=== PATIENT | female | born 1965 | race Caucasian/White ===

== ENCOUNTER 2017-06-23 07:52 | Emergency (ER) | payer SELFPAY ==
[2017-06-23 08:04] VITALS: BP 133/85
[2017-06-23] MEDS ORDERED: Tetracaine 0.5% OPTH.SOL 4 ML* 1 DROP BTL LEFT EYE ONE (08:11)
[2017-06-23] MEDS ORDERED: NS 0.9% 1000 ML* 1,000 ML IV ONE (08:12)
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
== END 2017-06-23 09:02 | disposition home or self-care (01) ==
LOC: UCEAST 07:52
DX: Z77.098 Contact with and (suspected) exposure to other hazardous, chiefly nonmedicinal, chemicals (principal); G43.909 Migraine, unspecified, not intractable, without status migrainosus; Z88.3 Allergy status to other anti-infective agents; Z87.442 Personal history of urinary calculi
CPT/HCPCS: 83986; 99212; A9270-GY; G0463

== ENCOUNTER 2017-11-13 05:52 | Emergency (ER) | payer BC ==
--- NOTE | 2017-11-13 08:18 | RAD ---
HISTORY: Cough COMPARISONS: December 12, 2006 VIEWS: 4: Frontal dual-energy and lateral views of the chest. FINDINGS: CARDIOMEDIASTINAL SILHOUETTE: The cardiomediastinal silhouette is normal. ERASMO: The erasmo are normal. PLEURA: The costophrenic angles are sharp. No pleural abnormalities are noted. LUNG PARENCHYMA: The lungs are clear. ABDOMEN: The upper abdomen is clear. There is no subphrenic gas. 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 IMPRESSION: NO ACTIVE CARDIOPULMONARY DISEASE.
[2017-11-13 08:37] VITALS: BP 115/72
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
== END 2017-11-13 08:43 | disposition home or self-care (01) ==
LOC: ED 05:52
DX: J11.1 Influenza due to unidentified influenza virus with other respiratory manifestations (principal); Z88.1 Allergy status to other antibiotic agents; D64.9 Anemia, unspecified; Z87.442 Personal history of urinary calculi
CPT/HCPCS: 71046; 99282

== ENCOUNTER 2018-12-28 07:15 | Emergency (ER) | payer BC, OTHER ==
[2018-12-28 07:34] VITALS: BP 142/84
[2018-12-28] MEDS ORDERED: Ondansetron ODT TAB* 4 MG PO ONE (07:34)
[2018-12-28] MEDS ORDERED: Acetaminophen TAB* 325 MG PO ONE (07:41)
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
== END 2018-12-28 08:55 | disposition home or self-care (01) ==
LOC: UCEAST 07:15
DX: S06.0X0A Concussion without loss of consciousness, initial encounter (principal); S30.0XXA Contusion of lower back and pelvis, initial encounter; S50.812A Abrasion of left forearm, initial encounter; R11.0 Nausea; R42 Dizziness and giddiness; Z88.0 Allergy status to penicillin; Z88.1 Allergy status to other antibiotic agents; Z88.8 Allergy status to other drugs, medicaments and biological substances; Z91.09 Other allergy status, other than to drugs and biological substances
CPT/HCPCS: 70450; 72100; 99212; A9270-GY; G0463

== ENCOUNTER 2019-04-16 09:20 | Emergency (ER) | payer BC, OTHER ==
[2019-04-16 09:52] VITALS: BP 123/74
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
[2019-04-16] MEDS ORDERED: predniSONE TAB* 20 MG PO ONE (10:16)
[2019-04-16] MEDS ORDERED: Albuterol/Ipratropium NEB.SOL* Albuterol 2.5 MG/Ipratropium 0.5 MG 3 ML INH ONE (10:16)
== END 2019-04-16 11:00 | disposition home or self-care (01) ==
LOC: UCEAST 09:20
DX: J20.9 Acute bronchitis, unspecified (principal); R06.2 Wheezing
CPT/HCPCS: 71046; 99212; A9270-GY; G0463; J7512

== ENCOUNTER 2019-08-27 20:16 | Emergency (ER) | payer BC ==
[2019-08-27 21:16] VITALS: BP 129/75
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
[2019-08-27] MEDS ORDERED: diPHENhydraMINE PO* 25 MG PO ONE (22:25)
[2019-08-27] MEDS ORDERED: Sulfamethox/Trimethoprim DS 800/160* TAB PO ONE (22:25)
== END 2019-08-27 22:50 | disposition home or self-care (01) ==
LOC: UCEAST 20:16
DX: R23.9 Unspecified skin changes (principal); Z88.0 Allergy status to penicillin; Z88.8 Allergy status to other drugs, medicaments and biological substances; Z91.09 Other allergy status, other than to drugs and biological substances
CPT/HCPCS: 99212; A9270-GY; G0463